=== PATIENT | female | born 1960 | race Two or more races ===

== ENCOUNTER 2018-02-21 08:26 | Outpatient (CLI) | payer OTHER | END 2018-02-21 10:08 | disposition home or self-care (01) | LOC: SONOGRAMA 08:26 | DX: E04.1 Nontoxic single thyroid nodule (principal) ==

== ENCOUNTER 2019-05-29 10:21 | Outpatient (CLI) | payer OTHER | END 2019-05-29 10:24 | disposition home or self-care (01) | LOC: SONOGRAMA 10:21 | DX: E04.2 Nontoxic multinodular goiter (principal) ==

== ENCOUNTER 2023-07-21 10:11 | Outpatient (CLI) | payer OTHER | END 2023-07-21 10:13 | disposition home or self-care (01) | LOC: SONOGRAMA 10:11 | PROVIDERS: ATTEND Pathology Anatomic Pathology & Clinical Pathology | DX: D34 Benign neoplasm of thyroid gland (principal); E04.9 Nontoxic goiter, unspecified ==

== ENCOUNTER 2023-11-08 10:45 | Emergency (ER) | payer OTHER ==
[~2023-11-08] VITALS: Ht 167.6 cm; Wt 72.6 kg
[2023-11-08] MEDS ORDERED: CHILDREN'S ASPI81 MG PO (11:06)
[2023-11-08] MEDS ORDERED: LOTREL 10-20 M1 EACH PO (11:06)
== END 2023-11-08 12:26 | disposition home or self-care (01) ==
LOC: ER 10:45
DX: M25.511 Pain in right shoulder (principal); Z88.0 Allergy status to penicillin

== ENCOUNTER 2025-11-18 13:47 | Outpatient (CLI) | payer OTHER ==
[~2025-11-18 13:47] MED LIST: CHILDREN'S ASPI81 MG PO; LOTREL 10-20 M1 EACH PO
== END 2025-11-18 13:50 | disposition home or self-care (01) ==
LOC: SONOGRAMA 13:47
PROVIDERS: ATTEND Pathology Anatomic Pathology & Clinical Pathology
DX: D34 Benign neoplasm of thyroid gland (principal); E07.89 Other specified disorders of thyroid; E04.2 Nontoxic multinodular goiter